=== PATIENT | male | born 1985 | race Caucasian/White ===

== ENCOUNTER 2019-10-19 10:20 | Outpatient (CLI) | payer OTHER ==
--- NOTE | 2019-10-19 10:42 | SLEEP CARE CONSULTATION ---
Information from patient questionnaire entered by Gillian Mcclure. I have reviewed and concur with the information entered by Gillian Mcclure. This document represents the service I personally performed and the decisions made by me, Wilfrido Latif MD, [facility]. History of Present Illness Service Date and Time: 10/19/2019 1020 Initial [place] Sleepiness Scale score: 8 (in 2019) Current [place] Sleepiness Scale score: 7 Additional HPI information: HPI: Mr. Tavarez returns for a follow up of the sleep study he had on 10/01/2019. The polysomnography showed the following: The quality of the study is good. CPAP was initiated 154.8 minutes into the study and titrated up from 4 cmH2O and titrated up to CPAP at 12 cmH2O. DIAGNOSTIC: The patient had normal sleep efficiency. The sleep architecture was abnormal for sleep fragmentation and lack of REM and slow wave sleep (N3). Respiratory monitoring showed very severe obstructive sleep apnea-hypopnea (AHI = 86.9) associated with frequent arousals, oxyhemoglobin desaturation and moderate hypoxia (michele oxygen saturation of 76%). The respiratory events occurred independently of sleep stage and body position. Snoring was loud in int ensity. There was no significant periodic limb movement of sleep. THERAPEUTIC: CPAP at 12 cmH2O appeared to be optimal (AHI of 4.2 per hour on the pressure). There was supine sleep on the pressure. Oxygen saturation was normal throughout the night. Lower CPAP settings allowed frequent residual respiratory events during supine sleep. The patient tolerated positive airway pressure therapy very well. The patients sleep efficiency was normal. Except for mild sleep fragmentation, the sleep architecture was normal as well. There was no significant periodic limb movement of sleep. Cardiac rhythm was normal sinus rhythm without significant arrhythmia. No abnormal behavior (parasomnia)observed during the night. The patient was informed of these findings. I explained to him the pathophysiology behind obstructive sleep apnea. We then spent quite a bit of time discussing different treatment options. For mild obstructive sleep apnea, surgery and oral appliance are alternatives to nasal CPAP therapy but in moderate or severe cases, nasal CPAP is the most effective and reliable treatment. Weight loss in an obese individual is strongly recommended. After some discussion, he opted to go with the nasal CPAP therapy. I explained to him how CPAP machine works and what to expect when using the machine. He is encouraged to use CPAP every night especially in the first 2 to 3 nights in orde r to get used to it. He should call his CPAP supplier or me to discuss any mechanical problem that may occur. If he snores or feels like he is not getting enough air from the machine, he should notify me and I will increase the pressure. Sleep Study - Results Type of Sleep Study: Polysomnography Allergies and Home Medications Drug allergies reviewed: Yes Home medication list reviewed: Yes Review of Systems Review of systems same as previous: Yes Physical Exam Height: 6 ft 2 in Weight: 298 lb Body Mass Index: 38.2 BMI Classification: Obese Impression and Plan IMPRESSION: 1. Obstructive Sleep Apnea-Hypopnea Syndrome, very severe, associated with moderate hypoxemia and sleep fragmentation. Obviously this is the cause of the patients symptoms of unrefreshed sleep, and excessive daytime sleepiness. As mentioned above, the patient will be started on an autoCPAP set at 8 - 12 cmH2O. Depending on his response and compliance he may be brought back for an overnight CPAP titration study. PLAN: 1. Prescription made for an autoCPAP, heated humidifier, and related supplies. 2. Attempt to lose weight and avoid alcohol consumption near bedtime. 3. The patient is again cautioned about driving until his sleepiness completely resolves on the CPAP therapy. 4. Return in six weeks for follow up. I will assess his response and compliance at that time. Visit Type: In Office Time Spent with Patient (minutes): 15 Provider Statement: I spent 100% of the Face to Face Visit with the patient with greater than 50% spent counseling the patient and coordination of care.
== END 2019-10-19 10:21 | disposition home or self-care (01) ==
LOC: SC 10:20
PROVIDERS: ATTEND Internal Medicine Pulmonary Disease
DX: G47.33 Obstructive sleep apnea (adult) (pediatric) (principal); E66.9 Obesity, unspecified; Z68.38 Body mass index [BMI] 38.0-38.9, adult
CPT/HCPCS: 99212; 99213

== ENCOUNTER 2019-12-02 09:36 | Outpatient (CLI) | payer OTHER ==
--- NOTE | 2019-12-02 10:11 | SLEEP CARE CONSULTATION ---
Information from patient questionnaire entered by Gillian Mcclure. I have reviewed and concur with the information entered by Gillian Mcclure. This document represents the service I personally performed and the decisions made by , Bria Andrews ARNP. History of Present Illness Service Date and Time: 12/02/2019 0936 Previous diagnosis: Very Severe, Obstructive Sleep Apnea-Hypopnea Syndrome AHI: 86.9 (in 2019) Reason for follow up: first compliance Equipment type: CPAP Equipment obtained from: [employer] (getting supplies as needed) Mask style: Nasal Mask brand: Resmed Backup mask available: Yes (has second mask) Last cushion change: 1 month Prior sleep studies: Yes Year and Where: 2019 - [facility] Sleep Type of Sleep Study: Polysomnography HPI additional information: INDY BATISTA was diagnosed to have very severe, AHI 86.9, obstructive sleep apnea-hypopnea syndrome and returned today for CPAP therapy first compliance follow-up. CPAP Compliance Data - Data Reviewed with Patient Average duration of nightly device use: 8.7 Compliance rate %: 97 Current pressure setting (cmH2O): 8-12 Humidity settin Average residual AHI: 5.2 Central apnea: 2.3 Obstructive apnea: 1.9 Subjective Missed days of use due to: reports: travel Patient concerns: reports: condensation in mask/hose. denies: aerophagia, mask discomfort, air blowing in eyes, mask leak noise, nasal congestion, dry mouth, nose, throat, epistaxis, other Observed to snore while using device: No Current pressure setting perceived as: comfortable On therapy, patient: reports: sleeping better, awakening more refreshed, being more awake and alert during the day, more rested overall. denies: drowsiness while driving Initial [place] Sleepiness Scale score: 8 (in 2019) Current [place] Sleepiness Scale score: 3 Allergies and Home Medications Drug allergies reviewed: Yes (NKDA) Home medication list reviewed: Yes (no changes) Review of Systems Review of systems same as previous: Yes (no changes) Physical Exam Heart Rate: 85 O2 Saturation: 99 Height: 6 ft 2 in Weight: 302 lb Body Mass Index: 38.7 BMI Classification: Obese Impression and Plan 1. Obstructive Sleep Apnea-Hypopnea Syndrome, very severe, with good treatment compliance and fair apnea control. On CPAP therapy, the patient has better sleep quality and is more rested overall. He does have fibromyalgia so still has some overall daily fatigue. He states he is remembering more dreams and sometimes he thinks dreaming make him more tired. He also asks about traveling with his CPAP, getting a travel machine. I advised him to talk to his DME about a battery back up which he may acquire for his machine but his insurance my not cover this cost. He voiced understanding. His average residual AHI is 5.2. I will increase his APAP pressure to 9-13 to try and reduce the residual AHI. Patient's apnea severity and rationale for treatment to reduce apnea, improve sleep quality and reduce cardiovascular and cerebrovascular events was reviewed. I also reviewed the benefit of consistent device use of CPAP for depression/anxiety and fibromyalgia . * Change auto CPAP pressure to 9-13 cmH2O * Notify me if snoring with mask or feeling that the pressure is too much or too little * Attempt to lose weight * Call this office if any problems using CPAP * Return for follow up in 1-2 months, or sooner if concerns arise Counseling Topics: Spare mask Visit Type: In Office Time Spent with Patient (minutes): 19 Provider Statement: I spent 100% of the Face to Face Visit with the patient with greater than 50% spent counseling the patient and coordination of care.
== END 2019-12-02 09:37 | disposition home or self-care (01) ==
LOC: SC 09:36
PROVIDERS: ATTEND Nurse Practitioner Family
DX: G47.33 Obstructive sleep apnea (adult) (pediatric) (principal); E66.9 Obesity, unspecified; Z68.38 Body mass index [BMI] 38.0-38.9, adult
CPT/HCPCS: 99212; 99213

== ENCOUNTER 2020-01-06 09:22 | Outpatient (CLI) | payer OTHER ==
--- NOTE | 2020-01-06 09:46 | SLEEP CARE CONSULTATION ---
Information from patient questionnaire entered by Gillian Mcclure. I have reviewed and concur with the information entered by Gillian Mcclure. This document represents the service I personally performed and the decisions made by , Bria Andrews ARNP. History of Present Illness Service Date and Time: 01/06/2020921 Previous diagnosis: Very Severe, Obstructive Sleep Apnea-Hypopnea Syndrome AHI: 86.9 (in 2019) Reason for follow up: one month (with pressure change) Equipment type: CPAP Equipment obtained from: [employer] (getting supplies as needed) Mask style: Nasal ([place] type mask) Backup mask available: Yes (other mask) Last cushion change: 1 week ago Prior sleep studies: Yes Year and Where: 2019 [facility] Sleep Type of Sleep Study: Polysomnography HPI additional information: INDY BATISTA was diagnosed to have very severe, AHI 86.9, obstructive sleep apnea-hypopnea syndrome and returned today for CPAP therapy one month pressure change follow-up. CPAP Compliance Data - Data Reviewed with Patient Average duration of nightly device use: 9 hr 39 min Compliance rate %: 100 Current pressure setting (cmH2O): 9-13 Humidity settin Average residual AHI: 3.0 Subjective Patient concerns: reports: air blowing in eyes (resolves with mask adjustment), dry mouth, nose, throat (dry nose), epistaxis (one this month). denies: aerophagia, mask discomfort, mask leak noise, condensation in mask/hose, nasal congestion Observed to snore while using device: No Current pressure setting perceived as: comfortable On therapy, patient: reports: sleeping better, awakening more refreshed, being more awake and alert during the day, more rested overall. denies: drowsiness while driving Initial [place] Sleepiness Scale score: 8 (in 2019) Current [place] Sleepiness Scale score: 2 Allergies and Home Medications Drug allergies reviewed: Yes (NKDA) Home medication list reviewed: Yes (no new medications) Review of Systems Review of systems same as previous: Yes (no changes) Physical Exam Heart Rate: 78 O2 Saturation: 98 Height: 6 ft 2 in Weight: 299 lb Body Mass Index: 38.4 BMI Classification: Obese Impression and Plan 1. Obstructive Sleep Apnea-Hypopnea Syndrome, very severe, with excellent treatment compliance and good apnea control. On CPAP therapy, the patient has better sleep quality and is more rested overall. Patient has had some dry nose problems with one bloody nose. I discussed with him increasing the humidity on the machine up from 4. Nasal dryness can be reduced with increasing the CPAP humidity as shown on sample device and the heated hose can be increased if condensation develops in hose or mask. Patient's apnea severity and rationale for treatment to reduce apnea, improve sleep quality and reduce cardiovascular and cerebrovascular events was reviewed. I also reviewed the benefit of consistent device use of CPAP for depression/anxiety and fibromyalgia. * Continue auto CPAP pressure at 9-13 cmH2O * Notify me if snoring with mask or feeling that the pressure is too much or too little * Attempt to lose weight * Call this office if any problems using CPAP * Return for follow up in 3 months , or sooner if concerns arise Counseling Topics: Spare mask, Weight loss health impact Visit Type: In Office Time Spent with Patient (minutes): 15 Provider Statement: I spent 100% of the Face to Face Visit with the patient with greater than 50% spent counseling the patient and coordination of care.
== END 2020-01-06 09:23 | disposition home or self-care (01) ==
LOC: SC 09:22
PROVIDERS: ATTEND Nurse Practitioner Family
DX: G47.33 Obstructive sleep apnea (adult) (pediatric) (principal); E66.9 Obesity, unspecified; Z68.38 Body mass index [BMI] 38.0-38.9, adult
CPT/HCPCS: 99212; 99213